=== PATIENT | male | born 1940 | race Caucasian/White ===

== ENCOUNTER 2022-12-17 00:52 | Emergency (ER) | payer MEDICARE ==
[2022-12-17 01:37] LABS: #Eosinphils 0.2 thou/uL (0.0-0.7); #Monocytes 0.7 thou/uL (0.11-0.59); #Neutrophils 5.3 thou/uL (1.40-6.50); %Basophils 0.2 % (0.0-1.0); %Eosinophils 2.2 % (0.0-10.0); %Lymphocytes 25.5 % (21.0-51.0); %Monocytes 8.5 % (0.0-10.0); %Neutrophils 63.2 % (42.0-75.0); Hematocrit 38.9 % (42.0-52.0); Hemoglobin 12.7 g/dL (14.0-18.0); Mean Corpuscular HGB CONC 32.6 g/dL (32.0-36.0); Mean Corpuscular Hemoglobin 30.4 pg (27.0-31.0); Mean Corpuscular Volume 93.1 fl (78.0-98.0); Mean Platelet Volume 9.4 fL (7.4-10.4); Platelet Count 252 10x3/uL (130-400); RBC Distribution Width 13.4 % (11.5-14.5); Red Blood Cell (RBC) Count 4.18 mill/uL (4.70-6.10); White Blood Cell (WBC) Count 8.5 10x3/uL (4.8-10.8)
[2022-12-17 02:03] LABS: Troponin I Less than 0.010 ng/mL (< 0.028)
[2022-12-17 02:06] LABS: ALT (SGPT) 15 U/L (8-55); AST (SGOT) 15 U/L (5-34); Albumin 3.9 g/dL (3.4-4.8); Alkaline Phosphatase 50 U/L (40-110); Anion Gap 13 mmol/L (10-20); BUN (Urea Nitrogen) 22 mg/dL (8.4-25.7); Bilirubin, Total 0.3 mg/dL (0.2-1.2); Calc. Creatinine Clearance 0 mL/min (70-130); Calcium 9.1 mg/dL (7.8-10.44); Carbon Dioxide 26 mmol/L (23-31); Chloride 106 mmol/L (98-107); Estimated GFR 48; Globulin 2.8 g/dL (2.4-3.5); Glucose 91 mg/dL (83-110); Potassium 3.8 mmol/L (3.5-5.1); Protein, Total 6.7 g/dL (5.8-8.1); Sodium 141 mmol/L (136-145)
[2022-12-17 02:50] LABS: Magnesium 2.2 mg/dL (1.6-2.6)
== END 2022-12-17 03:42 | disposition home or self-care (01) ==
LOC: ERS 00:52
DX: I48.0 Paroxysmal atrial fibrillation (principal); I10 Essential (primary) hypertension; E78.00 Pure hypercholesterolemia, unspecified; F17.210 Nicotine dependence, cigarettes, uncomplicated; Z79.82 Long term (current) use of aspirin; Z79.899 Other long term (current) drug therapy
CPT/HCPCS: 36415; 71045; 80053; 83735; 83880; 84484; 85025; 93005

== ENCOUNTER 2023-12-31 10:03 | Outpatient (CLI) | payer MEDICARE | END 2023-12-31 10:04 | disposition home or self-care (01) | LOC: BICCT 10:03 | PROVIDERS: ATTEND Internal Medicine Critical Care Medicine | DX: R07.89 Other chest pain (principal); C34.32 Malignant neoplasm of lower lobe, left bronchus or lung; J98.09 Other diseases of bronchus, not elsewhere classified | CPT/HCPCS: 36415; 71250; 82565 ==

== ENCOUNTER → 2024-01-05 | Day surgery (SDC) | payer MEDICARE ==
[2024-01-02 11:32] VITALS: BMI 32.1
[~2024-01-05] MED LIST: Ipratropium/Albuterol 3 ML NEB ONE; Lidocaine 1% PF 5 ML VIAL ONE; Lidocaine 4% PF 5 ML AMP ONE; Ondansetron PF 4 MG/2 ML Vial ONE; PROPOFOL 20 ML ONE; Rocuronium Bromide 10 MG/ML (10ML VIAL) ONE; SUGAMMADEX SODIUM 200 MG/2 ML VIAL ONE
[2024-01-05 08:26] LABS: #Basophils 0.05 10x3/uL (0.0-0.2); %Basophils 0.4 % (0.0-1.0); %Eosinophils 1.3 % (0.0-10.0); %Lymphocytes 18.8 % (21.0-51.0); %Monocytes 8.5 % (0.0-10.0); %Neutrophils 70.3 % (42.0-75.0); Hematocrit 36.1 % (42.0-52.0); Hemoglobin 11.6 g/dL (14.0-18.0); Mean Corpuscular HGB CONC 32.1 g/dL (32.0-36.0); Mean Corpuscular Hemoglobin 28.5 pg (27.0-31.0); Mean Corpuscular Volume 88.7 fL (78.0-98.0); Mean Platelet Volume 9.2 fL (7.4-10.4); Platelet Count 323 10x3/uL (130-400); Red Blood Cell (RBC) Count 4.07 mill/uL (4.70-6.10)
[2024-01-05 08:41] LABS: Anion Gap 13 mmol/L (10-20); BUN (Urea Nitrogen) 29 mg/dL (8.4-25.7); Calc. Creatinine Clearance 45 mL/min (70-130); Calcium 9.1 mg/dL (7.8-10.44); Carbon Dioxide 19 mmol/L (23-31); Chloride 107 mmol/L (98-107); Estimated GFR 40; Glucose 143 mg/dL (83-110); Potassium 4.4 mmol/L (3.5-5.1); Sodium 135 mmol/L (136-145)
== END ==
LOC: SDC 07:04
PROVIDERS: ATTEND Internal Medicine Critical Care Medicine
PROC: 0B9J8ZX Drainage of Left Lower Lung Lobe, Via Natural or Artificial Opening Endoscopic, Diagnostic (ICD-10-PCS; principal; 2024-01-05)
DX: R07.89 Other chest pain (principal); R91.8 Other nonspecific abnormal finding of lung field; R97.20 Elevated prostate specific antigen [PSA]; Z79.51 Long term (current) use of inhaled steroids; Z79.899 Other long term (current) drug therapy; Z79.82 Long term (current) use of aspirin; Z87.891 Personal history of nicotine dependence
CPT/HCPCS: 31625; 80048; 85025; 93005; J2405; J2704; 88112; 88305; 93010; J7620

== ENCOUNTER 2024-01-20 08:00 | Outpatient (CLI) | payer MEDICARE | END 2024-01-20 08:01 | LOC: PET 08:00 | PROVIDERS: ATTEND Internal Medicine Critical Care Medicine | DX: C34.90 Malignant neoplasm of unspecified part of unspecified bronchus or lung (principal); R91.8 Other nonspecific abnormal finding of lung field | CPT/HCPCS: 78815; A9552 ==

== ENCOUNTER → 2024-02-04 | Outpatient (CLI) | payer MEDICARE | LOC: SCSMRI 11:09 | PROVIDERS: ATTEND Internal Medicine | DX: C34.32 Malignant neoplasm of lower lobe, left bronchus or lung (principal); I67.89 Other cerebrovascular disease | CPT/HCPCS: 70553; 76376 ==

== ENCOUNTER 2024-02-13 15:58 | Emergency (ER) | payer MEDICARE ==
[2024-02-13 17:20] LABS: #Basophils 0.04 10x3/uL (0.0-0.2); %Basophils 0.4 % (0.0-1.0); %Eosinophils 1.8 % (0.0-10.0); %Lymphocytes 17.2 % (21.0-51.0); %Monocytes 9.2 % (0.0-10.0); %Neutrophils 70.7 % (42.0-75.0); Hematocrit 34.6 % (42.0-52.0); Hemoglobin 10.6 g/dL (14.0-18.0); Mean Corpuscular HGB CONC 30.6 g/dL (32.0-36.0); Mean Corpuscular Hemoglobin 29.4 pg (27.0-31.0); Mean Corpuscular Volume 95.8 fL (78.0-98.0); Mean Platelet Volume 8.8 fL (7.4-10.4); Platelet Count 290 10x3/uL (130-400); Red Blood Cell (RBC) Count 3.61 mill/uL (4.70-6.10)
[2024-02-13 17:51] LABS: ALT (SGPT) 16 U/L (8-55); AST (SGOT) 16 U/L (5-34); Albumin 3.1 g/dL (3.4-4.8); Alkaline Phosphatase 63 U/L (40-110); Anion Gap 13 mmol/L (10-20); BUN (Urea Nitrogen) 29 mg/dL (8.4-25.7); Bilirubin, Total 0.4 mg/dL (0.2-1.2); Calc. Creatinine Clearance 0 mL/min (70-130); Calcium 9.2 mg/dL (7.8-10.44); Carbon Dioxide 21 mmol/L (23-31); Chloride 104 mmol/L (98-107); Estimated GFR 38; Globulin 3.8 g/dL (2.4-3.5); Glucose 136 mg/dL (83-110); Potassium 4.1 mmol/L (3.5-5.1); Protein, Total 6.9 g/dL (5.8-8.1); Sodium 134 mmol/L (136-145)
[2024-02-13 18:08] LABS: Bacteria/HPF None Seen HPF (None Seen); Bilirubin Negative (Negative); Blood, Urine Negative (Negative); CAUTI Indications for Culture Acute Hematuria; Clarity Clear (Clear); Glucose, Urine (Dipstick) Normal (Negative); Ketone, Urine Negative (Negative); Leukocyte Negative Leu/uL (Negative); Nitrite Negative (Negative); Protein, Urine (Dipstick) Negative (Neg-Trace); RBC/HPF 0-3 HPF (0-3); Specific Gravity, Urine 1.004 (1.002-1.036); Squamous Epithelial None Seen HPF (0-3); Urobilinogen Normal mg/dL (Less than 2); WBC/HPF 0-3 HPF (0-3)
[2024-02-13 18:10] LABS: Urine Culture Reflex No No
== END 2024-02-13 19:07 | disposition home or self-care (01) ==
LOC: ERS 15:58
DX: N32.0 Bladder-neck obstruction (principal); I10 Essential (primary) hypertension; E78.00 Pure hypercholesterolemia, unspecified; I25.10 Atherosclerotic heart disease of native coronary artery without angina pectoris; F17.210 Nicotine dependence, cigarettes, uncomplicated; Z79.82 Long term (current) use of aspirin; Z79.899 Other long term (current) drug therapy
CPT/HCPCS: 51702; 80053; 81001; 85025; 99283

== ENCOUNTER 2024-02-13 21:31 | Emergency (ER) | payer MEDICARE | END 2024-02-13 22:30 | disposition home or self-care (01) | LOC: ERS 21:31 | DX: T83.098A Other mechanical complication of other urinary catheter, initial encounter (principal); I10 Essential (primary) hypertension; E78.00 Pure hypercholesterolemia, unspecified; I25.10 Atherosclerotic heart disease of native coronary artery without angina pectoris; R54 Age-related physical debility; F17.210 Nicotine dependence, cigarettes, uncomplicated; N32.0 Bladder-neck obstruction; Z79.82 Long term (current) use of aspirin; Z79.899 Other long term (current) drug therapy | CPT/HCPCS: 51702; 80053; 81001; 85025; 99283 ==

== ENCOUNTER 2024-03-22 13:20 | Inpatient (IN) | payer MEDICARE ==
[2024-03-22 15:01] LABS: #Basophils 0.04 10x3/uL (0.0-0.2); %Basophils 0.8 % (0.0-1.0); %Eosinophils 1.6 % (0.0-10.0); %Lymphocytes 6.6 % (21.0-51.0); %Monocytes 9.9 % (0.0-10.0); %Neutrophils 80.1 % (42.0-75.0); Hematocrit 30.7 % (42.0-52.0); Hemoglobin 9.9 g/dL (14.0-18.0); Mean Corpuscular HGB CONC 32.2 g/dL (32.0-36.0); Mean Corpuscular Hemoglobin 28.7 pg (27.0-31.0); Platelet Count 216 10x3/uL (130-400); RBC Distribution Width 15.7 % (11.5-14.5); Red Blood Cell (RBC) Count 3.45 mill/uL (4.70-6.10)
[2024-03-22 15:32] LABS: ALT (SGPT) 20 U/L (8-55); AST (SGOT) 20 U/L (5-34); Albumin 3.3 g/dL (3.4-4.8); Alkaline Phosphatase 58 U/L (40-110); Anion Gap 15 mmol/L (10-20); BUN (Urea Nitrogen) 38 mg/dL (8.4-25.7); Bilirubin, Total 0.3 mg/dL (0.2-1.2); Calc. Creatinine Clearance 0 mL/min (70-130); Carbon Dioxide 17 mmol/L (23-31); Chloride 103 mmol/L (98-107); Estimated GFR 20; Globulin 3.8 g/dL (2.4-3.5); Glucose 96 mg/dL (83-110); Potassium 4.9 mmol/L (3.5-5.1); Protein, Total 7.1 g/dL (5.8-8.1); Sodium 130 mmol/L (136-145)
[2024-03-22 17:00] LABS: Bilirubin Negative (Negative); Blood, Urine 3+ (Negative); CAUTI Indications for Culture Pelvic or flank pain; Clarity Extra Turbid (Clear); Glucose, Urine (Dipstick) Normal (Negative); Ketone, Urine 10 mg/dL (Negative); Leukocyte 250 Leu/uL (Negative); Nitrite Negative (Negative); Protein, Urine (Dipstick) 50 mg/dL (Neg-Trace); RBC/HPF Greater than 50 HPF (0-3); Specific Gravity, Urine 1.019 (1.002-1.036); Squamous Epithelial 0-3 HPF (0-3); Urobilinogen Normal mg/dL (Less than 2); WBC/HPF 21-50 HPF (0-3); Yeast-Budding 1+ HPF (None Seen); pH, Urine 5.5 (5.0-9.0)
[2024-03-22 17:01] LABS: Bacteria/HPF 1+ HPF (None Seen)
[2024-03-22 17:02] LABS: Urine Culture Reflex Yes Yes
[2024-03-22] MEDS ORDERED: Acetaminophen 325 MG TAB PO PRN (20:11)
[2024-03-22] MEDS ORDERED: Ondansetron PF 4 MG/2 ML Vial IVP PRN (20:11)
[2024-03-22] MEDS ORDERED: cefTRIAXone\\ROCEPHIN 1 GM in Sodium Chloride 0.9% 100 ML IVPB SCH (21:00)
[2024-03-22] MEDS: Sodium Chloride 0.9% 1,000 ML IV SCH (21:46)
[2024-03-22 21:50] VITALS: BMI 30.2
[2024-03-22] MEDS ORDERED: Oxybutynin ER 5 MG TAB PO PRN (23:33)
[2024-03-22] MEDS ORDERED: Ipratropium/Albuterol 3 ML NEB NEB PRN (23:39)
[2024-03-22] MEDS: Dronedarone HCl 400 MG TAB PO SCH (23:50)
[2024-03-22] MEDS: Finasteride 5 MG TAB PO SCH (23:50)
[2024-03-22] MEDS: buPROPion HCl 100 MG TAB PO SCH (23:50)
[2024-03-23] MEDS: diphenhydrAMINE 25 MG CAP PO SCH ×2 (00:24→22:01)
[2024-03-23] MEDS: Hydrocortisone 1% Cream 30 GM TUBE TOP PRN (05:12)
[2024-03-23 05:57] LABS: #Basophils 0.04 10x3/uL (0.0-0.2); %Basophils 0.8 % (0.0-1.0); %Lymphocytes 9.5 % (21.0-51.0); %Monocytes 10.5 % (0.0-10.0); %Neutrophils 74.4 % (42.0-75.0); Hematocrit 26.4 % (42.0-52.0); Hemoglobin 8.7 g/dL (14.0-18.0); Mean Corpuscular Hemoglobin 28.7 pg (27.0-31.0); Mean Corpuscular Volume 87.1 fL (78.0-98.0); Mean Platelet Volume 9.4 fL (7.4-10.4); Platelet Count 195 10x3/uL (130-400); RBC Distribution Width 15.5 % (11.5-14.5); Red Blood Cell (RBC) Count 3.03 mill/uL (4.70-6.10)
[2024-03-23 06:08] LABS: Anion Gap 12 mmol/L (10-20); BUN (Urea Nitrogen) 31 mg/dL (8.4-25.7); Calc. Creatinine Clearance 31 mL/min (70-130); Calcium 7.7 mg/dL (7.8-10.44); Carbon Dioxide 18 mmol/L (23-31); Chloride 108 mmol/L (98-107); Estimated GFR 28; Glucose 62 mg/dL (83-110); Potassium 4.6 mmol/L (3.5-5.1); Sodium 133 mmol/L (136-145)
[2024-03-23 06:11] LABS: INR-International Normal Ratio 1.7; PTT 34.3 sec (22.9-36.1); Prothrombin Time 19.7 sec (12.0-14.7)
[2024-03-23] MEDS: Atorvastatin Calcium 40 MG TAB PO SCH (09:02)
[2024-03-23] MEDS: buPROPion HCl 100 MG TAB PO SCH (09:02)
[2024-03-23] MEDS: Dronedarone HCl 400 MG TAB PO SCH (09:02)
[2024-03-23] MEDS: Senokot S 8.6-50 MG TAB PO SCH (09:02)
[2024-03-23] MEDS: Cholecalciferol 1,000 UNITS (25 MCG) TAB PO SCH (09:02)
[2024-03-23] MEDS: Polyethylene Glycol 3350 17 GM Packet PO SCH (09:02)
[2024-03-23 09:16] VITALS: BMI 30.2
[2024-03-23 11:53] LABS: Hematocrit 25.8 % (42.0-52.0); Hemoglobin 8.4 g/dL (14.0-18.0)
[2024-03-23] MEDS: EPOETIN ALFA-EPBX (ESRD) 10,000 UNITS/ML VIAL SC SCH (12:36)
[2024-03-23] MEDS: cefTRIAXone\\ROCEPHIN 1 GM in Sodium Chloride 0.9% 100 ML IVPB SCH (16:13)
[2024-03-23 19:48] LABS: Hematocrit 27.3 % (42.0-52.0); Hemoglobin 8.8 g/dL (14.0-18.0)
[2024-03-23] MEDS: Finasteride 5 MG TAB PO SCH (20:33)
[2024-03-24 06:15] LABS: #Basophils 0.03 10x3/uL (0.0-0.2); %Basophils 0.6 % (0.0-1.0); %Eosinophils 4.8 % (0.0-10.0); %Lymphocytes 8.4 % (21.0-51.0); %Monocytes 11.7 % (0.0-10.0); %Neutrophils 73.8 % (42.0-75.0); Hematocrit 25.1 % (42.0-52.0); Hemoglobin 8.1 g/dL (14.0-18.0); Mean Corpuscular HGB CONC 32.3 g/dL (32.0-36.0); Mean Corpuscular Hemoglobin 28.4 pg (27.0-31.0); Mean Corpuscular Volume 88.1 fL (78.0-98.0); Mean Platelet Volume 9.1 fL (7.4-10.4); Platelet Count 183 10x3/uL (130-400); RBC Distribution Width 15.9 % (11.5-14.5); Red Blood Cell (RBC) Count 2.85 mill/uL (4.70-6.10)
[2024-03-24 06:39] LABS: Anion Gap 10 mmol/L (10-20); BUN (Urea Nitrogen) 20 mg/dL (8.4-25.7); Calc. Creatinine Clearance 44 mL/min (70-130); Calcium 7.7 mg/dL (7.8-10.44); Carbon Dioxide 17 mmol/L (23-31); Chloride 111 mmol/L (98-107); Estimated GFR 42; Glucose 77 mg/dL (83-110); Potassium 4.3 mmol/L (3.5-5.1); Sodium 134 mmol/L (136-145)
[2024-03-24 07:49] VITALS: TEMP 98.5
[2024-03-24 13:33] VITALS: BP 122/69
== END 2024-03-24 13:35 | disposition home or self-care (01) | DRG 683 ==
LOC: ERS 13:20 → T4-A 20:05 → OBSVTOIN 03-23 16:44
PROVIDERS: ADMIT Internal Medicine; ATTEND Internal Medicine
PROC: 0T2BX0Z Change Drainage Device in Bladder, External Approach (ICD-10-PCS; principal; 2024-03-22)
DX: N17.9 Acute kidney failure, unspecified (principal); C34.90 Malignant neoplasm of unspecified part of unspecified bronchus or lung; I48.20 Chronic atrial fibrillation, unspecified; E87.1 Hypo-osmolality and hyponatremia; E87.20 Acidosis, unspecified; I25.10 Atherosclerotic heart disease of native coronary artery without angina pectoris; J44.9 Chronic obstructive pulmonary disease, unspecified; N28.1 Cyst of kidney, acquired; I12.9 Hypertensive chronic kidney disease with stage 1 through stage 4 chronic kidney disease, or unspecified chronic kidney disease; E88.09 Other disorders of plasma-protein metabolism, not elsewhere classified; N18.30 Chronic kidney disease, stage 3 unspecified; D63.1 Anemia in chronic kidney disease; R33.9 Retention of urine, unspecified; G47.33 Obstructive sleep apnea (adult) (pediatric); N41.9 Inflammatory disease of prostate, unspecified; R31.9 Hematuria, unspecified; L27.0 Generalized skin eruption due to drugs and medicaments taken internally; E78.5 Hyperlipidemia, unspecified; N40.0 Benign prostatic hyperplasia without lower urinary tract symptoms; Z91.81 History of falling; Z79.01 Long term (current) use of anticoagulants; Z79.899 Other long term (current) drug therapy; Z80.0 Family history of malignant neoplasm of digestive organs; Z87.891 Personal history of nicotine dependence; Z95.5 Presence of coronary angioplasty implant and graft
CPT/HCPCS: 36415; 51702; 76770; 80048; 80053; 81001; 83605; 85025; 85610; 85730; 86850; 86900; 86901; 87086; 93005; 96372; G0378; J0696; J7030; Q5105

== ENCOUNTER 2024-05-03 07:44 | Outpatient (CLI) | payer MEDICARE ==
[2024-05-03] MEDS ORDERED: Iopamidol 370 76% 100 ML VIAL ONE (14:57)
== END 2024-05-03 07:45 | disposition home or self-care (01) ==
LOC: BICCT 07:44
PROVIDERS: ATTEND Internal Medicine
DX: C34.32 Malignant neoplasm of lower lobe, left bronchus or lung (principal); N28.1 Cyst of kidney, acquired; R91.8 Other nonspecific abnormal finding of lung field
CPT/HCPCS: 36415; 71260; 74177; 82565; Q9967

== ENCOUNTER 2024-11-01 08:00 | Outpatient (CLI) | payer MEDICARE ==
[2024-11-01 09:10] LABS: Estimated GFR - POC 33.0
[2024-11-01] MEDS ORDERED: Iopamidol 370 76% 100 ML VIAL ONE (10:35)
== END 2024-11-01 08:01 | disposition home or self-care (01) ==
LOC: CT 08:00
PROVIDERS: ATTEND Radiology Radiation Oncology
DX: C34.92 Malignant neoplasm of unspecified part of left bronchus or lung (principal); R91.8 Other nonspecific abnormal finding of lung field
CPT/HCPCS: 36415; 71260; 82565; Q9967

== ENCOUNTER 2024-11-15 08:45 | Outpatient (CLI) | payer MEDICARE | END 2024-11-15 08:46 | disposition home or self-care (01) | LOC: PET 08:45 | PROVIDERS: ATTEND Radiology Radiation Oncology | DX: C34.32 Malignant neoplasm of lower lobe, left bronchus or lung (principal); C25.9 Malignant neoplasm of pancreas, unspecified; R91.1 Solitary pulmonary nodule; J98.4 Other disorders of lung | CPT/HCPCS: 78815; A9552 ==